=== PATIENT | female | born 1955 | race Caucasian/White ===

== ENCOUNTER 2024-08-22 05:58 | Day surgery (SDC) | payer MEDICARE, SELFPAY ==
[2024-08-08 13:33] VITALS: BMI 25.8
[2024-08-22] VITALS (25 sets, daily range): BP systolic 106–161; BP diastolic 47–92; PULSE 89–129; RESP 8–18; TEMP 36.1–37.6; O2SAT 91–104; BMI 25.8; BMI 27.3
--- NOTE | 2024-08-22 | DI.RAD.S_ITS ---
PROCEDURE: XR HIP W PEL IF DONE RT 2V INDICATIONS: ANTERIOR RIGHT HIP TECHNIQUE: 2 fluoroscopic spot images of the right hip acquired. COMPARISON: None. FINDINGS / IMPRESSION: Two fluoroscopic spot images from right total hip arthroplasty the procedures dictated under separate report. Fluoroscopic Dosimetry values are not delineated. Dictated by: Tera Hess M.D. on 08/25/2024 at 12:16 Approved by: Tera Hess M.D. on 08/25/2024 at 12:18
--- NOTE | 2024-08-22 06:00 | DI.RAD.S_ITS ---
PROCEDURE: XR HIP W PEL IF DONE RT 2V INDICATIONS: total right hip TECHNIQUE: AP pelvis and lateral view of the hip acquired. COMPARISON: [facility], [place], XR HIP W PEL IF DONE RT 2V, 08/22/2024, 9:33. FINDINGS: Bones: Patient is status post right hip arthroplasty, with hardware components in expected positions. The hip joint appears congruent. The visualized bony structures appear intact. Soft tissues: Overlying postoperative changes are noted. No suspicious soft tissue densities. IMPRESSION: Expected post-operative appearance of a hip arthroplasty. Dictated by: Ang Caballero M.D. on 08/22/2024 at 10:39 Approved by: Ang Caballero M.D. on 08/22/2024 at 10:39
[2024-08-22] MEDS: ACETAMINOPHEN 325 MG TABLET 975 MG PO ×2 (06:53→18:01)
[2024-08-22] MEDS: LACTATED RINGERS 1,000 ML 50 ML IV (06:58)
[2024-08-22] MEDS: CEFAZOLIN 2 GM/100 ML PREMIX 100 ML IV ×3 (07:58→23:35)
--- NOTE | 2024-08-22 08:27 | SUR.OPER ---
Supine on padded [place] table with bilateral legs secured in padded positioning boots and suspended in positioning spars, operative leg in traction per surgeon. Head on one pillow. Arm on non-operative side secured on padded armboard <90 degrees abduction. Arm on operative side padded and resting across chest then secured with tape over sheet. Padded perineal post in place per surgeon.
[2024-08-22] MEDS: ROPIVACAINE/EPI/CLONIDINE/KET 50 ML SYRINGE INJ (08:37)
[2024-08-22] MEDS: TRANEXAMIC ACID 1,000 MG VIAL 2000 MG INJ (08:38)
--- NOTE | 2024-08-22 09:51 | P.OP_ITS ---
Operative Date/Time/Diagnoses Date of procedure: 08/22/24 Pre-op diagnosis: Right hip osteoarthritis Post-op diagnosis: same Procedure & Clinicians Procedure: Right total hip arthroplasty Same procedure as scheduled: Yes Surgeon: Andi Mejia Managing Cognitive Engineer: David Tilley Anesthesia Type: General and Local Operative Notes Estimated Blood Loss (mL): 250 Procedure in detail: Right Uncemented Direct Anterior Depuy Total Hip Arthroplasty: Implants: * [place] Gription size 54 cup? * Actis femoral stem size 5 high offset? * 36 mm +1.5 ceramic femoral head? Procedure Summary: This 69-year-old female patient received 1 size up on the cup side and the templated implants on the femoral side. All tested parameters were appropriate during initial trialing so these implants were used for the definitive implants. During calcar planing while I was manipulating the thigh to gain access to the broach connector the pressure of the retractor on the greater trochanter caused it to essentially cave in. I had not performed a conjoined tendon release and the conjoined tendon remained intact in its entirety to the piece which had essentially collapsed due to the compression forces of the greater trochanter retractor. I did tie and Ethibond suture around the area in an attempt to hold the remaining soft tissue attachments. The entirety of the abductor musculature remained intact on the intact greater trochanter. It was quite difficult to visualize on fluoroscopy and may also be difficult to visualize on postoperative radiographs. I will not modify any of her postoperative protocol because of t his. Procedure in Detail: This patient was seen preoperatively and evaluated for hip pain which was refractory to numerous nonoperative treatment modalities. Their hip pain correlated with radiographic changes demonstrating significant degeneration in the hip joint. The risks and benefits of continued nonoperative management versus operative management were discussed at length and all of the patient?s questions were answered. Additional educational materials providing further details beyond our discussion in clinic were provided via a publicly available patient education video which included the incidence of medical complications associated with total hip arthroplasty, reasons for revision following total hip arthroplasty, and patient satisfaction rates following total hip arthroplasty. That video can be accessed at [email or web address] . With this understanding of the risks inherent to the procedure, the patient elected to move forward with operative management. Following preoperative optimization, the patient was scheduled for surgery. The patient was met in the preoperative holding area the day of the procedure and all questions were answered. The patient?s nares were swabbed with betadine in order to decolonize them from MRSA. Informed consent was signed and the right limb was marked with indelible ink.? The patient was brought back to the operating room where anesthesia was induced. The patient was transferred to the [place] table and all bony prominences were padded. The operative site was prepped and draped in the usual sterile fashion. Prior to incision, tranexamic acid and cefazolin were administered. Operative templating images were displayed demonstrating the anticipated implant sizes and correct operative extremity. A timeout procedure was performed verifying the patient?s identity, medical comorbidities, allergies, relevant medications, anesthesia type and the surgical plan. All present were in agreement. The assistance of a physician assistant front office manager was required for positioning, room setup, soft tissue retraction and wound closure. Without this assistance, the procedure would have been significantly more challenging and time consuming.?? A direct anterior approach to the hip was utilized. This was performed with a longitudinal incision through a Heuter interval. The incision was planned 2 cm distal and 2 cm lateral to the ASIS extending towards the lateral patella, in line with the muscle body of the TFL. Following incision, the subcutaneous tissue was dissected while taking care to avoid injury to the lateral femoral cutaneous nerve. The fascia overlying the TFL was identified by dissecting off the overlying fat and identifying perforating vessels to the TFL. The TFL fascia was incised and dissected away from the medial border of the TFL. A cobra retractor was placed over the superior femoral neck between the abductors and the hip capsule and used to reflect the TFL laterally. A Wells self-retainer was then placed in the distal aspect of the wound between the TFL and the rectus femoris. This was tensioned to open up the direct anterior interval and the lateral circumflex vessels were identified and coagulated using electrocautery. The floor of the TFL fascia was incised, exposing the pericapsular fat overlying the hip capsule. A second cobra retractor was placed on the inferior femoral neck. A double-bent soft tissue retractor was placed on the anterior wall of the acetabulum and used to tension the reflected head of rectus femoris, which was then released in order to limit soft tissue tension. A capsulotomy was made in the midline of the anterior hip capsule in line with the femoral neck ending at the vastus tubercle. The double-bent retractor was removed in order to limit the amount of time that a soft tissue retractor remained on the anterior wall and protect the femoral nerve. Tag stitches were placed in the superior and inferior leaflets of the hip capsule. An Ángel soft tissue retractor was introduced over the tag stitches and tensioned in the interval between the rectus femoris and t he TFL in order to retract and protect those muscles. The cobra retractors were replaced intracapsularly, with one over the superior neck in the pocket created by the base of the greater trochanter and the other on the femoral head. The capsulotomy was extended laterally to the base of the greater trochanter and medially to the lesser trochanter. This required externally rotating the hip. Once the lesser trochanter had been identified, a neck cut was planned according to measurements from preoperative templating. A ruler was cut at the length measured between the superior aspect of the lesser trochanter and the collar of the prosthesis. This line was extended towards the inferior aspect of the lateral cobra retractor to plan a cut which would leave minimal residual femoral neck laterally. The neck was cut at 60 degrees of external rotation along that line. A second cut was performed to remove a large napkin ring and facilitate head extraction. The napkin ring cut and femoral head were removed.?? A broad anterior wall retractor was placed between the labrum and the anterior capsule so that the anterior capsule would prevent capturing and pinching the femoral nerve anteriorly. An additional retractor was placed on the posterior wall. External rotation and traction were applied through the [place] table so that the cut surface of the femoral neck would not restrict access to the acetabulum. The labrum was excised sharply and the pulvinar was excised with electrocautery to limit bleeding from branches of the obturator artery. Acetabular reamers were selected based on preoperative templating and measurements of the excised femoral head. These were introduced into the acetabulum. Fluoroscopy was utilized to replicate a standing AP pelvis radiograph by centering over the pelvis, rotating until there was appropriate symmetry between the obturator foramen, and introducing caudal tilt to match the position of the pubic symphysis relative to the sacrococcygeal junction according to the patient?s anatomy. Fluoroscopy was utilized to ensure appropriate reaming depth. Once satisfied with the reaming depth corresponding to the preoperative template and the pinch fit between the columns, an appropriate sized acetabular cup was selected which would provide 1 mm of press-fit. This cup was introduced and manipulated until appropriate abduction and anteversion angles were obtained with careful attention to appropriate abduction and anteversion angles as evaluated by the position of the cup relative to the anterior and posterior jordan of the acetabulum and the AP fluoroscopy which recreated the patient?s standing radiograph. The cup was impacted into place. Peripheral osteophytes were removed. The acetabular liner was then placed with care to ensure locking of the locking mechanism.? Attention was then turned to the femur. All retractors were removed, traction was released, a retractor was placed in the interval between the hip capsule and the gluteus minimus, and the hip was externally rotated to 90 degrees. Traction was applied through the [place] table to tension the lateral capsule and this was released using electrocautery. Traction was released and a [place] hook was placed posteriorly around the proximal femur at the level of the vastus ridge. The table height was lowered in order to restrict the tension on the anterior structures during hip hyperextension to limit the risk of femoral nerve palsy. With traction off and the hip at 90 degrees of external rotation, the hip was hyperextended and adducted while manually elevating the femur away from the al tabulum with the [place] hook to ensure it would not be caught behind the greater trochanter. An asymmetric retractor was placed over the calcar and a broad double-pronged retractor was placed over the greater trochanter. The tag stitch capturing the lateral leaflet of the capsule was moved to the medial side, leaving the conjoined and piriformis tendons isolated in the face of the greater trochanter. The hip was externally rotated and elevated. A release of the conjoined tendon was not necessary in order to obtain adequate exposure for broaching. The canal was opened with an opening broach and a rasp was used to remove cancellous bone. A rongeur was used to remove the residual lateral bone at the base of the greater trochanter to avoid placing the stem in varus. The femur was then broached to the appropriate sized stem yielding good rotational fit and fill of the canal as well as appropriate version of the stem trial. Neck and head trials were placed, all retractors were removed and the hip was returned to neutral abduction and extension. I then reduced the hip. Initial trialing was performed with a size 5 broach, a high offset neck and a +1.5 head. I initially manually externally rotated the hip and found no instability. I then locked the hip in 45 degrees of external rotation and dropped it to the floor with traction off which demonstrated no instability. An AP pelvis fluoroscopic image matching the preoperative standing radiograph with both lesser trochanters visible and both hips in 40 degrees of external rotation demonstrated appropriate leg length and offset. AP and lateral hip fluoroscopic images were obtained to evaluate the broach size which demonstrated appropriate canal fill. The hip was dislocated and I returned to the broaching position. Based on my evaluation during initial trialing I planned to place these definitive implants. The definitive stem was placed and the trunnion was cleaned and dried. I placed a ceramic head onto the trunnion and impacted it into place on the [place] taper.?? All retractors were removed and the hip was reduced. A dilute mixture of betadine and peroxide was used to bathe the soft tissues during final fluoroscopic assessment. Appropriate component positioning was confirmed on an AP pelvis radiograph with the operative and nonoperative legs in 40 degrees of external rotation, evaluating leg length and offset. Appropriate stem fill was evaluated on AP and lateral hip radiographs. No fractures were identified on these radiographs. There was no hip instability with 140? of external rotation as well as a 45 degree drop test. The hip was copiously irrigated with pulse lavage. The capsule was closed with absorbable interrupted suture. The TFL fascia was closed with barbed suture while carefully protecting the lateral femoral cutaneous nerve from entrapment. A mixture of Ropivacaine, Epinephrine, Clonidine and Toradol was infiltrated throughout the soft tissues. The skin was closed with 2-0 and 3-0 sutures. S urgical glue was applied and a soft dressing was placed.??The sponge, instrument and needle counts were reported as being correct at the end of the case.??No obvious complications occurred. The patient was transferred from the [place] table back to a stretcher. The patient emerged from anesthesia without difficulty and was taken to the PACU in a stable condition.? Plan for aftercare: * Anterior hip precautions * Patient is a chronic opiate user and will receive her baseline opiates during this admission * Patient had help at home unfortunately her family member who is going to help her has had a series health issue of her own and will not be readily available so we will work with the patient on progressing her functional tolerance during this admission with anticipation of eventual discharge home and potentially keep her in the hospital for longer than typical * Weightbearing as tolerated * Aspirin 81 twice per day for DVT prophylaxis * Anticipate discharge home over the weekend * Change into normal clothes upon arrival on the hospital floor * Mobilize in the halls as much as is logistically possible. If physical therapy is unavailable for mobilization, then patient should mobilize with nursing staff * Multimodal pain regimen with no IV opioids ordered * Apply ice machine to operative hip. Ensure that sufficient ice is in the chamber for the pad to remain cold * Follow up at [facility] in 2 weeks * Detailed postoperative instructions available at [email or web address]
[2024-08-22] MEDS: HYDROMORPHONE 1 MG INJ IV ×2 (10:33→10:40)
[2024-08-22] MEDS: hydrOXYzine 50 MG/ML INJ 25 MG IM (10:57)
[2024-08-22] MEDS: OXYCODONE IR 5 MG TABLET 10 MG PO (10:58)
[2024-08-22] MEDS: fentaNYL 100 MCG/2 ML INJ IV ×2 (10:58→11:12)
[2024-08-22] MEDS: LACTATED RINGERS 1,000 ML 100 ML IV (12:30)
[2024-08-22] MEDS: OXYCODONE IR 10 MG TABLET 20 MG PO ×2 (13:36→17:12)
[2024-08-22] MEDS: LIOTHYRONINE 5 MCG TABLET 15 MCG PO ×2 (13:36→16:16)
--- NOTE | 2024-08-22 13:45 | PT.IIE ---
Current Diagnoses Unilateral primary osteoarthritis, right hip (08/22/24) Surgery Performed Operation Date: 08/22/24 07:45 Actual Procedures p Total Hip Arthroplasty/Anterior Approach(Right) - Andi Mejia MD Surgical History (Last Updated 08/08/24 @ 14:44 by Amparo Zuñiga, RN) Cataract extraction status History of cholecystectomy (2012) History of lateral meniscus repair of left knee History of tonsillectomy Medical History (Last Updated 08/08/24 @ 14:45 by Amparo Zuñiga, RN) Chronic back pain Double vision Foot fracture, right Hypothyroid Osteoarthritis Physical Therapy Inpatient Evaluation/Re-Eval M1 PT/OT-IP Prior Functional Status Start: 08/22/24 16:12 Freq: NEEDED Status: Active Protocol: Document 08/22/24 13:45 AB (Rec: 08/22/24 16:23 AB [id number]) Medical Review Prior Functional Status Medical History Reviewed Yes Communication able to make needs known Mobility and Gait pt stated taht she was independent with all mobilities and ambualtion without AD Activities of Daily Living and IADL's per OT note: Able to do ADL and IADL needs but had pain. Social History Household Members none Living Arrangements House Number of Floors (Floors) One Floor Number of Stairs To Enter/Railing? 2 steps with left rail to enter Home Environment Standard Height Toilet,Tub/ Shower Home Equipment Front Wheel Walker,Straight Cane,Raised Toilet Seat w/ Armrests,Shower Seat without Backrest,Hand Held Shower Additional Social History Comment pt stated that she has neighbors to assist her if needed but no one to stay and assist her M2 PT-IP Current Condition Start: 08/22/24 16:12 Freq: NEEDED Status: Active Protocol: Document 08/22/24 13:45 AB (Rec: 08/22/24 16:23 AB [id number]) Physical Therapy Current Condition Current Condition Evaluation Date 08/22/24 Treatment Diagnosis s/p R KEHINDE anterior; difficulty in walking Onset Date 08/22/24 M3 PT-IP Subjective Start: 08/22/24 16:12 Freq: NEEDED Status: Active Protocol: Document 08/22/24 13:45 AB (Rec: 08/22/24 16:23 AB [id number]) Subjective Physical Therapy Visit Type Type Initial Evaluation Visit Start Time 13:45 Visit Stop Time 14:20 Number of [employer]PERATIONS ENGINEER Visits 0 Physical Therapy Visit Comments Patient Comments agreeable to do PT Therapy Pain Assessment Pain When Pain Assessed At Rest Pain Present Pain Present Pain Reported Location right hip Intensity 8 Scale Used Numeric (0 - 10) Pain Behaviors Guarding Pain Management Techniques Distraction,Modification of Treatment,Re-positioning, Timing of Activity with Medications M4 PT-IP Mobility and Gait Start: 08/22/24 16:12 Freq: NEEDED Status: Active Protocol: Document 08/22/24 13:45 AB (Rec: 08/22/24 16:23 AB [id number]) PT-Bed Mobility Assessment Supine to Sit Supine to Sit Standby Assistance PT-Transfer Assessment Sit to and From Stand Sit to and from Stand Moderate Assistance,Maximum Assistance,1 Person Assistance ,Use of Upper Extremities Equipment Transfer Assistive Device Gait Belt,Front Wheeled Walker Orthotic/Prosthetic Devices or Brace: No Transfers Transfer Destination Chair Transfer Technique ambulated Transfer Ability Level of Assist Moderate Assistance,Maximum Assistance,1 Person Assistance ,Use of Upper Extremities Comments Mobility Comments pt supine in bed and slightly sleepy but agreed to do PT. obtained PLOF and home set up from pt. post-op folder provided and reviewed contents with pt. educated on R hip anterior precautions. BP in supine: 129/68. pt completed supine to sit SBA. able to sit on EOB SBA. no c/o dizziness /lightheadedness. BP checked: 139/73. pt completed sit to stand mod to max A and max cues and ambulated in room ~ 15 ft using FWW mod to max A and max cues. (+) L knee buckling during turning max A for steadiness and safety. pt wants to sit on the chair and ambulated to the chair. positioned pt on the chair. call light and table placed within reach. Left pt with OT. Gait Assessment Gait Gait Assistance Required: Moderate Assistance,Maximum Assistance Distance (Feet) 15 Able to Maintain Weight Bearing Status Yes During Gait Assistive Devices Assistive Device Gait Belt,Front Wheeled Walker Orthotic/Prosthetic Devices or Brace: No Gait Deviations General Gait Pattern Antalgic,Decreased Stride Length,Decreased Feet Clearance Factors Limiting Gait Function Factors Limiting Gait Function Decreased Activity Tolerance, Difficulty Following Directions,Limited Range of Motion,Pain,Poor Balance,Poor Safety Awareness PT-Balance Assessment Sitting Balance and Reactions Static Sitting Balance Ability Normal Dynamic Sitting Balance Ability Good Standing Balance and Reactions Static Standing Balance Ability Fair Dynamic Standing Balance Ability Poor Device Used FWW M5 PT-IP Objective Assessments Start: 08/22/24 16:12 Freq: NEEDED Status: Active Protocol: Document 08/22/24 13:45 AB (Rec: 08/22/24 16:23 AB [id number]) Orientation Orientation/Cognition Level of Alertness Alert Orientation Name,Place,Situation Language Function Ability No Deficits Noted Safety Awareness Decreased Safety Awareness Memory Description No Deficits Noted Comments slightly sleepy Gross Range of Motion Lower Extremity ROM Assessment Within Functional Limits Strength Lower Extremity Strength Assessment Right Impaired Hip 3+/5 Knee 3+/5 Coordination Assessment Gross Coordination Gross Coordination WNL Sensation Assessment Sensation Gross Sensation WNL Muscle Tone Muscle Tone WNL Yes M6 PT-IP Treatment Start: 08/22/24 16:12 Freq: NEEDED Status: Active Protocol: Document 08/22/24 13:45 AB (Rec: 08/22/24 16:23 AB [id number]) Physical Therapy Treatment Exercises Exercises Heel Slides Education Education Provided Precautions,Weight Bearing Status,Post-Op Packet,Safety M7 PT-IP Assessment and Plan Start: 08/22/24 16:12 Freq: NEEDED Status: Active Protocol: Document 08/22/24 13:45 AB (Rec: 08/22/24 16:23 AB [id number]) PT Summary Assessment and Plan Potential Rehabilitation Potential Fair Status of Condition at Evaluation Evolving Summary Impairments Pain,ROM,Strength,Balance, Coordination,Sensation,Tone, Cognition,Bed Mobility, Transfers,Gait,Activity Tolerance Assessment Summary pt is a 69 y/o F s/p R KEHINDE anterior approach POD 0. pt requiring mod to max A with transfers and ambulation using FWW and (+) knee buckling during ambulation requiring max A for recovery and steadiness. pt lives alone and will not have consistent assistance at home. d/c plan depending on progress but at this time will require SNF rehab. Goals Bed Mobility Goal Independent Transfer Goal Independent,Front Wheeled Walker Gait Goal Independent,Front Wheel Walker Gait Distance 150 Other Goals up/down 2 steps L rail ascending SBA Days to Meet Goals 5 Frequency of Treatment Frequency Of Treatment Twice a Day Treatment Plan Physical Therapy Treatment Plan Bed Mobility Training,Transfer Training,Gait Training, Therapeutic Exercise,Balance Retraining,Post Op Education, Discharge Planning,Hot or Cold Pack,Neuromuscular Re-ed, Coordination Retraining,Manual Therapy Precautions Anterior Hip Precautions No Hip Extension,No Hip External Rotation Weight Bearing Status Weight Bearing Status Weight Bear as Tolerated Allowed Weight Bearing Amount (enter % RLE WBAT or #) (%) Recommendations To Nursing Amount of Assist Needed 2 Person Assist Discharge Recommendations PT Discharge Recommendations Home with 21/05 Assist Available,Home Health,SNF Rehab,Home vs SNF Transportation Needs at Discharge Private Vehicle,Wheelchair/ Cabulance
--- NOTE | 2024-08-22 13:45 | OT.IP.EVAL ---
Current Diagnoses Unilateral primary osteoarthritis, right hip (08/22/24) Surgery Performed Operation Date: 08/22/24 07:45 Actual Procedures p Total Hip Arthroplasty/Anterior Approach(Right) - Andi Mejia MD Past Medical History (Last Updated 08/08/24 @ 14:45 by Amparo Zuñiga, RN) Chronic back pain Double vision Foot fracture, right Hypothyroid Osteoarthritis Surgical History (Last Updated 08/08/24 @ 14:44 by Amparo Zuñiga, RN) Cataract extraction status History of cholecystectomy (2012) History of lateral meniscus repair of left knee History of tonsillectomy Occupational Therapy Inpatient Evaluation/Re-Eval M1 PT/OT-IP Prior Functional Status Start: 08/22/24 14:21 Freq: NEEDED Status: Active Protocol: Document 08/22/24 14:22 [facility] (Rec: 08/22/24 14:37 [facility] [id number]) Medical Review Prior Functional Status Communication I Mobility and Gait I with no devices but had pain . Activities of Daily Living and IADL's Able to do ADL and IADL needs but had pain. Social History Household Members none Living Arrangements House Number of Floors (Floors) One Floor Number of Stairs To Enter/Railing? 2 steps with left rail. Home Environment Standard Height Toilet,Tub/ Shower Home Equipment Front Wheel Walker,Straight Cane,Raised Toilet Seat w/ Armrests,Hand Held Shower Additional Social History Comment Originally pt's sister to stay and assist but had medical sx and not able to come and assist pt anymore. M2 OT-IP Current Condition Start: 08/22/24 14:21 Freq: Status: Active Protocol: Document 08/22/24 14:22 [facility] (Rec: 08/22/24 14:37 [facility] [id number]) Occupational Therapy Current Condition Current Condition Evaluation Date 08/22/24 Treatment Diagnosis S/P R KEHINDE anterior approach Diagnosis Onset Date 08/22/24 Post Operative Precautions Anterior Hip Precautions No Hip Extension,No Hip External Rotation Weight Bearing Status Weight Bearing Status Weight Bear as Tolerated M3 OT- IP Subjective and Pain Start: 08/22/24 14:21 Freq: Status: Active Protocol: Document 08/22/24 14:22 [facility] (Rec: 08/22/24 14:37 [facility] [id number]) OT- Subjective Occupational Therapy Visit Type Type Initial Evaluation Visit Start Time 13:45 Visit Stop Time 14:23 Occupational Therapy Visit Comments Patient Comments Pt agreed to get up. Patient/Caregiver Goals Pt wanting to go to skilled rehab. OT Pain Assessment Pain When Pain Assessed During Mobility Pain Present Pain Present Pain Reported Location right hip Intensity 8 Scale Used Numeric (0 - 10) M4 OT- IP ADL's Start: 08/22/24 14:21 Freq: Status: Active Protocol: Document 08/22/24 14:22 [facility] (Rec: 08/22/24 14:37 [facility] [id number]) OT [id number] General Evaluation Self-Feeding Ability Independent OT ADL-Grooming Comments OT Grooming Comments Not performed. OT ADL-Oral Care Comments Oral Care Comments NOt performed. OT ADL-Dressing General Eval Lower Body Dressing Ability Maximum Assistance Areas Needing Assistance Socks Comments OT Dressing Comments Educated not to cross her RLE over for LB dressing needs and would benefit from LB dressing equipment. OT ADL-Toileting Comments OT Toileting Comments Use of BSC for safety at this time and pt unsteady and buckling at times. Educated pt to be mindful of her RLE positioning during ADL needs and to be sure not to externally rotate her leg out. OT ADL-Bathing Comments OT Bathing Comments Not performed. M5 OT- IP IADL's Start: 08/22/24 14:21 Freq: Status: Active Protocol: Document 08/22/24 14:22 [facility] (Rec: 08/22/24 14:37 [facility] [id number]) OT-Instrumental Activities of Daily Living Home Safety Awareness Awareness of Need for Assistance at Home Good Awareness Home Safety Comments Pt very groggy and having difficulty to stay awake at this time. Medication Management Medication Management Comments Prior pt was independent. Money Management Money Management Comments Prior pt was independent. Meal Preparation Meal Preparation Comments Prior pt was independent. Business Excellence Leader Business Excellence Leader Comments Prior pt was independent. M6 OT- IP Functional Cognition Start: 08/22/24 14:21 Freq: Status: Active Protocol: Document 08/22/24 14:22 [facility] (Rec: 08/22/24 14:37 [facility] [id number]) Cognitive Factors Limiting Selfcare Function Cognitive Ability Level of Alertness Drowsy Patient Orientation Name,Place,Situation Attention Span Ability Capable of Focused Attention, Unable to Focus,Unable to Sustain Attention Ability to Follow Commands Able to Follow One Step Commands with Increased Time, Able to Follow One Step Commands with Repetition Cognitive Comments Cognitive Assessment Comments Pt very groggy and drowsy and having difficulty to stay awake at this time. Pt needing step by step cues to follow, MAX vc for safety . OT- Vision and Hearing OT- Hearing Assessment OT- Hearing Assessment WFL OT- Vision Assessment Visual Acuity Glasses All The Time Visual Attentiveness WFL Occular Pursuits WFL M7 OT- IP Mobility and Balance Start: 08/22/24 14:21 Freq: Status: Active Protocol: Document 08/22/24 14:22 [facility] (Rec: 08/22/24 14:37 [facility] [id number]) OT- Bed Mobility Assessment Supine to Sit Supine to Sit Assist Standby Assistance OT-Transfer Assessment Sit to and From Stand Sit to and from Stand Moderate Assistance,Maximum Assistance,1 Person Assistance Transfers Transfer Ability Moderate Assistance,Maximum Assistance,1 Person Assistance Technique Transfer Destination Bed,Chair Transfer Technique Stand Step Pivot Devices Transfer Assistive Devices Gait Belt,Front Wheeled Walker Comments Mobility Comments Increased time and assist with her hands to help move her RLE. MOD/MAXA to stand and to assist with FWW. At this time best to have 2 person assist for transfers only as pt right leg rishi at times. BP supine 129/68, sitting 139/73 and after getting to the recliner after taking a few steps dropped to 90/40 sitting in the recliner. BP with legs up 116/57- nursing notified and O2 replaced back on the pt. OT- Balance Assessment Sitting Balance and Reactions Static Sitting Balance Ability Fair Dynamic Sitting Balance Ability Fair Standing Balance and Reactions Static Standing Balance Ability Poor Dynamic Standing Balance Ability Poor M8 OT- IP Objective Assessments Start: 08/22/24 14:21 Freq: Status: Active Protocol: Document 08/22/24 14:22 [facility] (Rec: 08/22/24 14:37 [facility] [id number]) OT Gross Range of Motion Upper Extremity Range of Motion Assessment Within Functional Limits OT Strength Upper Extremity Strength Assessment Within Functional Limits Comments Strength Comments right 3rd digit trigger finger M9 OT- IP Assessment and Plan Start: 08/22/24 14:21 Freq: Status: Active Protocol: Document 08/22/24 14:22 [facility] (Rec: 08/22/24 14:37 [facility] [id number]) OT Summary Assessment and Plan Potential Rehabilitation Potential Excellent Analytic Complexity at Evaluation Low Summary OT Impairments Pain,Strength,Balance, Functional Mobility,Grooming, Dressing,Toileting,Bathing, Toilet Transfers,Shower Transfers,Activity Tolerance Progress Towards Goals Slow Progress due to Pain,Slow Progress due to Medical Issues,Slow Progress due to Activity Tolerance Assessment Summary Pt low complexity main barriers are steps, groggy, unsteady on her feet as her RLE rishi, and will benefit from skilled rehab prior to going home. Pt evaled today and BP dropped after getting up. Pt needing MOD/MAXA x1 for transfers and suggested two person assist for nursing staff as her LLE rishi at times. Pt is motivated to get better. Goals Self-Feeding Goal Independent Grooming Goal Independent Dressing Goal Independent Toileting Goal Independent Bathing Goal Independent Toilet Transfer Goal Independent Shower Transfer Goal Independent Days to Meet Goals 20 Frequency of Treatment Other frequency 5x/week Treatment Plan OT Treatment Plan ADL Training,Functional Mobility,Patient/Family Education,Discharge Planning Discharge Recommendations OT Discharge Recommendations SNF Rehab Transportation Needs at Discharge Private Vehicle,Wheelchair/ Cabulance
[2024-08-22] MEDS: KETOROLAC 30 MG/ML VIAL 15 MG IV ×2 (15:51→21:40)
--- NOTE | 2024-08-22 19:03 | PC.NURSE ---
Ortho: Working with PT and has been getting up with staff. Rt leg tends to buckle. saw her after surgery, he told pt this is expected because he filled the muscles with lidocaine per pt. She is concerned about going home between the pain and the weakness to the rt leg. Care management sent a referral. Pt has been using her ice machine. Has recieved Oxy 20mg for pain, she has been offered the dilaudid several times because her pain stays at an 8/10 any time she moves. She doesn't want to change to dilaudid though. She is concerned to use it since she has trouble taking many medications. She knows it is available if she want to use.
[2024-08-22] MEDS: DOCUSATE 100 MG CAPSULE PO (21:26)
[2024-08-22] MEDS: LIOTHYRONINE 5 MCG TABLET PO (21:26)
[2024-08-22] MEDS: ASPIRIN EC 81 MG TABLET PO (21:26)
[2024-08-23 00:28] VITALS: BP 119/58; PULSE 97; RESP 18; TEMP 36.5; O2SAT 98
[2024-08-23 01:21] VITALS: O2SAT 98
[2024-08-23] MEDS: OXYCODONE IR 10 MG TABLET 20 MG PO ×6 (01:37→22:31)
[2024-08-23] MEDS: ACETAMINOPHEN 325 MG TABLET 975 MG PO ×3 (01:45→16:37)
[2024-08-23] MEDS: KETOROLAC 30 MG/ML VIAL 15 MG IV ×4 (04:16→22:01)
[2024-08-23 04:26] VITALS: BP 117/46; PULSE 93; RESP 16; TEMP 36.4; O2SAT 97
[2024-08-23 04:31] LABS: Hematocrit 31.8 % (36-46)
[2024-08-23] MEDS: LIOTHYRONINE 5 MCG TABLET 35 MCG PO (05:03)
[2024-08-23 08:42] VITALS: BP 121/54; PULSE 96; RESP 17; TEMP 36.6; O2SAT 97
--- NOTE | 2024-08-23 08:48 | PM.PNPO.1 ---
Subjective Subjective Date Patient Seen: 08/23/24 Time Patient Seen: 08:48 Interval history: Patient states that she has new pain primarily at the incision site. She has general pain throughout her body due to pre-existing arthritis. No new numbness or tingling down the lower extremities. Does have some weakness in the right leg. No nausea vomiting fever or chills. Exam Vital Signs (past 8 hours): - 08/23/24 01:21 08/23/24 04:26 08/23/24 08:42 Temperature 97.5 F L 97.9 F Pulse Rate 93 H 96 H Respiratory Rate 16 17 Blood Pressure 117/46 L 121/54 L Pulse Oximetry 98 97 97 Oxygen Delivery Method Nasal Cannula Oxygen Flow Rate 2 2 Fraction of Inspired Oxygen 28 Fraction of Inspired Oxygen 28 SaO2/FiO2 Ratio 350 Oxygen Delivery Method Nasal Cannula Oxygen Flow Rate 2 Narrative Exam Narrative: Patient found sitting comfortably in bed. Aquacel dressing is clean dry and intact. SCDs are not on. 5/5 strength in hip flexors, quadriceps, hamstrings, DF, PF, EHL left. 5/5 strength in DF, PF, EHL right. 3/5 hip flexors, quadriceps, hamstrings, right. Sensation to light touch intact throughout BLE. Calves soft, compressible, nontender. ?Dressing placed intraoperatively CDI. Const General: cooperative and healthy appearing Resp Effort & Inspection: normal respiratory effort and able to speak in complete sentences Objective Labs 08/23/24 04:15 Labs: Laboratory Results - last 24 hr 08/23/24 04:15 Hgb 11.0 L Hct 31.8 L PFSH Medical History (Updated 08/08/24 @ 14:45 by Amparo Zuñiga RN) Chronic back pain Foot fracture, right Double vision Hypothyroid Osteoarthritis Surgical History (Updated 08/08/24 @ 14:44 by Amparo Zuñiga RN) History of lateral meniscus repair of left knee History of cholecystectomy (2012) Cataract extraction status History of tonsillectomy Social History household members: none Smoking Status: Former smoker alcohol intake: current Assessment & Plan Post-op Postoperative Procedures: Procedures Operation Date: 08/22/24 07:45 Actual Procedure Side Surgeon p Total Hip Arthroplasty/Anterior Approach Right Andi Mejia MD Postoperative day: 1 Postoperative status: doing well Postoperative plan narrative: - Anterior hip precautions - Patient is a chronic opiate user and will receive her baseline opiates during this admission - Weightbearing as tolerated with assistive devices - Aspirin 81 twice per day for DVT prophylaxis - SCDs applied and turned on. They should be on bilateral lower extremity when patient is resting in bed for DVT prevention. - Mobilize in the halls as much as is logistically possible. If physical therapy is unavailable for mobilization, then patient should mobilize with nursing staff - Apply ice machine to operative hip. Ensure that sufficient ice is in the chamber for the pad to remain cold - Discussed with the patient of discharging to home versus SNF. She has not feel stable enough to do it discharge home today. She is also concerned that she has no assistance at home. She will discuss with cm if SNF is an option for her. Gave encouraged him that she work with physical therapy so that she will become more ambulatory in hopes of discharging to home in the next 1-2 days. Time Spent With Patient Time with patient: 15-24 minutes Quality VTE Deep Vein Thrombosis/Pulmonary Embolism Present on Admission: No
[2024-08-23] MEDS: DOCUSATE 100 MG CAPSULE PO ×2 (09:19→21:25)
[2024-08-23] MEDS: ASPIRIN EC 81 MG TABLET PO ×2 (09:20→21:25)
--- NOTE | 2024-08-23 09:35 | PT.IPTN ---
Current Diagnoses Unilateral primary osteoarthritis, right hip (08/22/24) Surgery Performed Operation Date: 08/22/24 07:45 Actual Procedures p Total Hip Arthroplasty/Anterior Approach(Right) - Andi Mejia MD Physical Therapy Treatment Note M2 PT-IP Current Condition Start: 08/22/24 16:12 Freq: NEEDED Status: Active Protocol: Document 08/22/24 13:45 [facility] (Rec: 08/22/24 16:23 [facility] [id number]) Physical Therapy Current Condition Current Condition Evaluation Date 08/22/24 Treatment Diagnosis s/p R KEHINDE anterior; difficulty in walking Onset Date 08/22/24 M3 PT-IP Subjective Start: 08/22/24 16:12 Freq: NEEDED Status: Active Protocol: Document 08/23/24 09:35 [facility] (Rec: 08/23/24 12:27 [facility] [id number]) Subjective Physical Therapy Visit Type Type Treatment Note Visit Start Time 09:35 Visit Stop Time 10:15 Number of QUAIL FARMER Visits 0 Physical Therapy Visit Comments Patient Comments agreeable to do PT Therapy Pain Assessment Pain When Pain Assessed At Rest Pain Present Pain Present Pain Reported Location right hip Intensity 8 Scale Used Numeric (0 - 10) Pain Behaviors Guarding Pain Management Techniques Apply Cold,Distraction, Modification of Treatment,Re- positioning,Timing of Activity with Medications M4 PT-IP Mobility and Gait Start: 08/22/24 16:12 Freq: NEEDED Status: Active Protocol: Document 08/23/24 09:35 [facility] (Rec: 08/23/24 12:27 [facility] [id number]) PT-Bed Mobility Assessment Supine to Sit Supine to Sit Maximum Assistance PT-Transfer Assessment Sit to and From Stand Sit to and from Stand Moderate Assistance,Maximum Assistance,1 Person Assistance ,Use of Upper Extremities Equipment Transfer Assistive Device Gait Belt,Front Wheeled Walker Orthotic/Prosthetic Devices or Brace: No Transfers Transfer Destination Chair Transfer Technique ambulated Transfer Ability Level of Assist Moderate Assistance,Maximum Assistance,1 Person Assistance ,Use of Upper Extremities Gait Assessment Gait Gait Assistance Required: Moderate Assistance,Maximum Assistance Distance (Feet) 25 Able to Maintain Weight Bearing Status Yes During Gait Assistive Devices Assistive Device Gait Belt,Front Wheeled Walker Orthotic/Prosthetic Devices or Brace: No Gait Deviations General Gait Pattern Antalgic,Decreased Feet Clearance Factors Limiting Gait Function Factors Limiting Gait Function Decreased Activity Tolerance, Decreased Strength,Difficulty Following Directions,Limited Range of Motion,Pain,Poor Balance,Poor Safety Awareness Comments Gait Comments pt supine in bed and agreeable to do PT. completed heel slides in bed. pt completed supine to sit max A and max cues. sit to stand from the EOB mod to max A and max cues. pt ambulated in room using FWW mod to max A ~ 25 ft and cues. pt presents with slow paced gait and decrease RLE elevation with stepping. positioned pt on the chair. call light and table placed within reach. M5 PT-IP Objective Assessments Start: 08/22/24 16:12 Freq: NEEDED Status: Active Protocol: Document 08/22/24 13:45 [facility] (Rec: 08/22/24 16:23 [facility] [id number]) Orientation Orientation/Cognition Level of Alertness Alert Orientation Name,Place,Situation Language Function Ability No Deficits Noted Safety Awareness Decreased Safety Awareness Memory Description No Deficits Noted Comments slightly sleepy Gross Range of Motion Lower Extremity ROM Assessment Within Functional Limits Strength Lower Extremity Strength Assessment Right Impaired Hip 3+/5 Knee 3+/5 Coordination Assessment Gross Coordination Gross Coordination WNL Sensation Assessment Sensation Gross Sensation WNL Muscle Tone Muscle Tone WNL Yes M6 PT-IP Treatment Start: 08/22/24 16:12 Freq: NEEDED Status: Active Protocol: Document 08/23/24 09:35 [facility] (Rec: 08/23/24 12:27 [facility] [id number]) Physical Therapy Treatment Exercises Exercises Heel Slides Education Education Provided Precautions,Weight Bearing Status,Safety M7 PT-IP Assessment and Plan Start: 08/22/24 16:12 Freq: NEEDED Status: Active Protocol: Document 08/23/24 09:35 [facility] (Rec: 08/23/24 12:27 [facility] [id number]) PT Summary Assessment and Plan Potential Rehabilitation Potential Fair Summary Impairments Pain,ROM,Strength,Balance, Coordination,Sensation,Tone, Cognition,Bed Mobility, Transfers,Gait,Activity Tolerance Progress Towards Goals Slow Progress due to Pain,Slow Progress due to Activity Tolerance Assessment Summary pt requiring mod to max A with transfers and ambulation using FWW and was able to ambulate 25 ft today. continues to have decrease activity tolerance and c/o increase hip pain affecting mobility. pt will need SNF rehab to improve overall strenght and function. Goals Bed Mobility Goal Independent Transfer Goal Independent,Front Wheeled Walker Gait Goal Independent,Front Wheel Walker Gait Distance 150 Other Goals up/down 2 steps L rail ascending SBA Days to Meet Goals 5 Frequency of Treatment Frequency Of Treatment Twice a Day Treatment Plan Physical Therapy Treatment Plan Bed Mobility Training,Transfer Training,Gait Training, Therapeutic Exercise,Balance Retraining,Post Op Education, Discharge Planning,Hot or Cold Pack,Neuromuscular Re-ed, Coordination Retraining,Manual Therapy Precautions Anterior Hip Precautions No Hip Extension,No Hip External Rotation Weight Bearing Status Weight Bearing Status Weight Bear as Tolerated Allowed Weight Bearing Amount (enter % RLE WBAT or #) (%) Recommendations To Nursing Amount of Assist Needed 1 Person Assist Discharge Recommendations PT Discharge Recommendations SNF Rehab Transportation Needs at Discharge Wheelchair/Cabulance
[2024-08-23] MEDS: LIOTHYRONINE 5 MCG TABLET 15 MCG PO ×2 (09:58→14:24)
--- NOTE | 2024-08-23 12:13 | P.PN_ITS ---
Subjective Subjective Interval history: PATIENT SUMMARY: The patient presented with post-operative management and concerns related to chronic opioid use and bone integrity following surgery. SUBJECTIVE: The patient reported experiencing grogginess and difficulties staying awake during conversations. The patient had a goal to transition from oxycodone back to tramadol for managing arthritis-related pain. The patient received oxycodone every four to five hours, which helped with sleep but led to awakening once the effects wore off. The patient also inquired about the use of Toradol, Celebrex, and meloxicam, reporting adverse reactions such as nausea with Celebrex and meloxicam. The patient planned to use ibuprofen less than twice a week and ice the affected area frequently. The patient discussed the desire to spend 7 to 10 days in a care facility for rehabilitation, as insurance covers up to 20 days. The patient mentioned feeling better when moving around compared to the previous day and expressed a positive outlook on recovery. The patient had a history of arthritis since age 32 and questioned whether this contributed to bone issues observed during surgery. The patient had a family history of osteoporosis, potentially related to the mother's condition. The patient previously received steroid injections into the back. OBJECTIVE: Not available. ASSESSMENT: 1. Post-operative pain management: The patient was on oxycodone for post- surgical pain and was planning to transition back to tramadol for arthritis. The patient experienced grogginess, which may be related to opioid use. The tapering plan would need to be gradual to avoid withdrawal symptoms. 2. Bone integrity concern: During surgery, a part of the patient's bone, the greater trochanter, collapsed slightly, indicating possible osteopenia or osteoporosis. A DEXA scan was considered to evaluate bone density further, given the family history of osteoporosis and surgical findings. PLAN: Treatment: - Continued oxycodone for pain relief with a plan to transition to tramadol eventually. - Ice therapy as needed for pain relief. - NSAIDs like ibuprofen advised for use less than twice a week as this is what she states she is able to take. Tests: - Plan to order a DEXA scan to assess bone density in the outpatient setting. Patient Education: - Discussed the importance of a gradual reduction in opioid use. - Advised on the benefits of ice therapy for pain management. Follow-Up: - Scheduled follow-up appointments to monitor recovery and review DEXA scan results. Disposition: - Planned for short-term rehabilitation in a care facility for 7 to 10 days. Exam Vital Signs (past 8 hours): - 08/23/24 04:26 08/23/24 08:42 Temperature 97.5 F L 97.9 F Pulse Rate 93 H 96 H Respiratory Rate 16 17 Blood Pressure 117/46 L 121/54 L Pulse Oximetry 97 97 Oxygen Flow Rate 2 Fraction of Inspired Oxygen 28 SaO2/FiO2 Ratio 350 Oxygen Delivery Method Nasal Cannula Oxygen Flow Rate 2 Objective Labs 08/23/24 04:15 Labs: Laboratory Results - last 24 hr 08/23/24 04:15 Hgb 11.0 L Hct 31.8 L [facility] Medical History (Updated 08/08/24 @ 14:45 by Amparo Zuñiga RN) Chronic back pain Foot fracture, right Double vision Hypothyroid Osteoarthritis Surgical History (Updated 08/08/24 @ 14:44 by Amparo Zuñiga, RN) History of lateral meniscus repair of left knee History of cholecystectomy (2012) Cataract extraction status History of tonsillectomy Social History household members: none Smoking Status: Former smoker alcohol intake: current Assessment & Plan Time-Based Coding :: [TOTAL MINUTES] spent with patient and on the chart (including review of chart, obtaining history, exam, reviewing outside data, placing orders, documenting exam and treatment plan, and counseling patient) on [DATE]. Quality VTE Deep Vein Thrombosis/Pulmonary Embolism Present on Admission: No
--- NOTE | 2024-08-23 12:43 | CM.DANOTE ---
Patient is a 69 yo female who was admitted on 08/22/24 for RTHA. Pt has [facility] MCR for insurance and her PCP is Gaviota Lyons. EMR was reviewed. Per Ortho, pt with hx of right hip arthritis and tolerated RTHA well and to work with PT/OT to determine home vs SNF. Per PT, pt currently mod to max assist for transfers and ambulation and recommending SNF at this time. SW met bedside with pt and explained role and she confirms that she lives in [facility] in a mobile home alone but has very supportive neighbors. Pt is independent with ADLs at baseline and drives and does have a cane and walker if needed but typically ambulates independently. Pt states she had a home plan of her sister coming to stay but now her sister is receiving chemotherapy herself and cannot assist. Pt has 2 other sisters who are not able or comfortable with providing assist at d/c. Pt denies any hx of SNF but confirms she feels SNF needed prior to safe d/c home and SW provided SNF Choice list with highlighted [facility] contracted facilities. Pt states her preference is 1) [facility] or [facility] 2) [facility] or [facility]. SW confirmed that pt does not have financial means to pay privately for in-home CGs or SNF as she states she is in significant debt due to detention care of her spouse who was terminally ill and has since and pt states I'm going to have to work all the way until I'm . Pt also confirms that her neighbors can assist but not stay with her. SW made SNF referrals to: [facility]- could likely accept but unsure if female bed available until Mon PM or Tu AM. [facility]- received vm about referral but cannot access referral from home as computer not working and will try to review today if possible. [facility]- faxed and emailed referral and left msg [facility]- can accept and willing to initiate auth. PASRR completed and signed for exempted hospital discharge due to depression medication on H&P home med list. Plan: SW to follow for [facility] submission for AAR auth and to follow closely for further PT tomorrow to determine if she made progress for d/c to home Sunday vs SNF under her insurance auth. MARISELA Dunn Discharge Planning/Care Management CM Discharge Assessment Start: 08/23/24 12:41 Freq: Status: Active Protocol: Document 08/23/24 12:41 BF (Rec: 08/23/24 12:43 BF [id number]) Discharge Planning Assessment Assigned [employer] MARISELA Samuel DPOA/Assigned Designee Name sister Lesly Contact Information [phone] Advance Directives? Yes Advance Directives on File No History Provided By Patient,Medical Record Has Patient been admitted in last 30 No days? Prior Living Arrangements House Household Members none Type of transporation used prior to Drives own vehicle admit Independent with ADL's Yes Is patient alert and oriented? Yes Caregiver for Another No: spouse now Community Services used prior to Physical Therapy admission: DME Already Rented / Owned FWW / Walker,Cane Patient/Family Preference Halfway Facility,Home with Home Health Comment SNF vs home with HH pending progress Barriers to Discharge No Comment If SNF, need AARP auth Discharge Plan Halfway Facility Transportation Arrangement If SNF, facility van if home then friend can transport Referrals Initiated Halfway If patient plan is SNF: Has PASSR been Yes completed? Medicare Choice List Provided Yes Medicare choice list reviewed on patient electronic tablet with SNF/HH Preference 1) [facility] or [facility] 2) [facility] or [facility] Has Agency SNF been contacted Yes Whiteboard Updated in Patient Room with Yes name and ext. # of [employer] Review Status In Process Please Provide Date Initial DC 08/23/24 Assessment Was Performed Next Review Type Continued Stay Review Pre-Anesthesia Assessment Start: 08/08/24 13:33 Freq: Status: Complete Protocol: Document 08/08/24 13:33 LB (Rec: 08/08/24 14:58 LB [id number]) Pre-Anesthesia Assessment PAC Comment 08/08/24 Phone assessment. Patient Information Reviewed Via Phone Assessment Assessment Completed With Patient Diagnostic Results BMP/CMP,CBC,EKG Comment 06/18/24 outside labs/EKG. Primary Care Provider G[facility]iota Lyons Seen Specialist in Last 12 Months Yes Specialist Seen Orthopedist,Other Primary Language Latvian Preferred Language Latvian Geomorphology Teacher Required No Height 167.64 cm Weight 72.575 kg Body Mass Index (BMI) 25.8 Hearing Ability Normal Visual Assist Glasses Dentition Type Teeth, Natural Present Barriers to Learning None Hx Anesthesia Reactions No Hx Family Anesthesia Reaction No Hx Malignant Hyperthermia No Hx Blood Transfusions No Anesthesia Review Requested Yes Color Television Console Monitor Yes: left VM with with discharge planning. alcohol intake current alcohol intake frequency a few times a week Smoking Status Former smoker how long ago did patient quit smoking Quit 2006 Substance Use Type opiates Comment CBD oil Pain Present Pain Reported Comment Bilat hips, back. Musculoskeletal Symptoms Back Pain,Joint Pain,Muscle Cramps,Muscle Spasms,Numbness, Tingling History of Falling (Recent or History of No ) Patient is completely paralyzed or No completely immobile Comment Walking sticks. Is patient on oxygen? No Does patient have KIM/SOB Yes: only when thyroid levels are not in range. Hx Sleep Apnea No CPAP/BIPAP use not prescribed Currently Taking a Beta Angelica No Can You Climb a Flight of Stairs Without Yes SOB Hx Chest Pain No Hx SOB No Hx Syncope or Dizziness No Anti-Coagulant Therapy No Has a Sales Trainer No Cardiac Testing No Hx Pacemaker/ICD No Cardiac Clearance Received Not Applicable Dysphagia No Comment Rare constipation. Bladder Pattern Nocturia,Urgency Diabetes No HgbA1C 5.2 Date 06/18/24 Patient No Lactating No Hx Drug Resistant Organism Yes: C-diff 5 years ago. Presence of External or Internal Medical Yes: bilat IOL. Devices Have you had any close contact with No someone diagnosed with COVID-19? Are you experiencing any of these No symptoms symptoms? Marital Status / Lives With none Current Living Arrangements House Number of Floors (Floors) One Floor Number of Stairs To Enter/Railing? 2 stairs to enter with railing . Support System None Does the Patient Have Assistance After No Surgery Comment Pt would like to go to rehab - message left for discharge planning. Additional comment Overnight LOS advised by surgeon. Emergency Contact Name Lesly Castro - sister Mikaela Bernard - friend Emergency Contact [phone] Advance Directives? No PAC Instructions Assistance for 24 hours post- op,Durable medical equipment, Medications to take/avoid, Nasal antibiotic,No ETOH/ petroleum product on skin DOS, NPO,Post-op transportation,Pre -surgical wash,Sensory aids, Sturdy shoes/comfortable clothes,Do not bring valuables and remove jewelry
[2024-08-23 13:35] LABS: Estimated Glomerular Filt Rate > 60 mL/min (>60)
--- NOTE | 2024-08-23 14:31 | PT.IPTN ---
Current Diagnoses Unilateral primary osteoarthritis, right hip (08/22/24) Surgery Performed Operation Date: 08/22/24 07:45 Actual Procedures p Total Hip Arthroplasty/Anterior Approach(Right) - Andi Mejia MD Physical Therapy Treatment Note M2 PT-IP Current Condition Start: 08/22/24 16:12 Freq: NEEDED Status: Active Protocol: Document 08/22/24 13:45 AB (Rec: 08/22/24 16:23 AB [id number]) Physical Therapy Current Condition Current Condition Evaluation Date 08/22/24 Treatment Diagnosis s/p R KEHINDE anterior; difficulty in walking Onset Date 08/22/24 M3 PT-IP Subjective Start: 08/22/24 16:12 Freq: NEEDED Status: Active Protocol: Document 08/23/24 14:31 AB (Rec: 08/23/24 18:11 AB [id number]) Subjective Physical Therapy Visit Type Type Treatment Note Visit Start Time 14:31 Visit Stop Time 14:47 Number of GAMER Visits 0 Physical Therapy Visit Comments Patient Comments agreeable to do PT and wants to go back to bed Therapy Pain Assessment Pain When Pain Assessed At Rest Pain Present Pain Present Pain Reported Location right hip Intensity 7 Scale Used Numeric (0 - 10) Pain Management Techniques Apply Cold,Distraction, Modification of Treatment,Re- positioning,Timing of Activity with Medications M4 PT-IP Mobility and Gait Start: 08/22/24 16:12 Freq: NEEDED Status: Active Protocol: Document 08/23/24 14:31 AB (Rec: 08/23/24 18:11 AB [id number]) PT-Bed Mobility Assessment Sit to Supine Sit to Supine Maximum Assistance,1 Person Assistance PT-Transfer Assessment Sit to and From Stand Sit to and from Stand Moderate Assistance,1 Person Assistance,Use of Upper Extremities Equipment Transfer Assistive Device Gait Belt,Front Wheeled Walker Orthotic/Prosthetic Devices or Brace: No Transfers Transfer Destination Bed Transfer Technique ambulated Transfer Ability Level of Assist Moderate Assistance,1 Person Assistance,Use of Upper Extremities Comments Mobility Comments pt sitting on the chair and agreeable to do PT. pt wants to go back to bed afterwards. completed sit to stand from chair mod A and cues. ambulated in room ~ 50 ft using fWW mod A and cues. presents with slow paced gait and decrease RLE elevation . pt sat on EOB. completed sit to supine max A for LE elevation to bed. positioned pt on the bed. call light and table placed within reach. Gait Assessment Gait Gait Assistance Required: Moderate Assistance Distance (Feet) 50 Able to Maintain Weight Bearing Status Yes During Gait Assistive Devices Assistive Device Gait Belt,Front Wheeled Walker Orthotic/Prosthetic Devices or Brace: No Gait Deviations General Gait Pattern Decreased Stride Length, Decreased Feet Clearance,Step- to Gait Factors Limiting Gait Function Factors Limiting Gait Function Decreased Activity Tolerance, Decreased Strength,Difficulty Following Directions,Limited Range of Motion,Pain,Poor Balance,Poor Safety Awareness M5 PT-IP Objective Assessments Start: 08/22/24 16:12 Freq: NEEDED Status: Active Protocol: Document 08/22/24 13:45 AB (Rec: 08/22/24 16:23 AB [id number]) Orientation Orientation/Cognition Level of Alertness Alert Orientation Name,Place,Situation Language Function Ability No Deficits Noted Safety Awareness Decreased Safety Awareness Memory Description No Deficits Noted Comments slightly sleepy Gross Range of Motion Lower Extremity ROM Assessment Within Functional Limits Strength Lower Extremity Strength Assessment Right Impaired Hip 3+/5 Knee 3+/5 Coordination Assessment Gross Coordination Gross Coordination WNL Sensation Assessment Sensation Gross Sensation WNL Muscle Tone Muscle Tone WNL Yes M6 PT-IP Treatment Start: 08/22/24 16:12 Freq: NEEDED Status: Active Protocol: Document 08/23/24 14:31 AB (Rec: 08/23/24 18:11 AB [id number]) Physical Therapy Treatment Education Education Provided Precautions,Weight Bearing Status,Safety M7 PT-IP Assessment and Plan Start: 08/22/24 16:12 Freq: NEEDED Status: Active Protocol: Document 08/23/24 14:31 AB (Rec: 08/23/24 18:11 AB [id number]) PT Summary Assessment and Plan Potential Rehabilitation Potential Good Summary Impairments Pain,ROM,Strength,Balance, Coordination,Sensation,Tone, Cognition,Bed Mobility, Transfers,Gait,Activity Tolerance Progress Towards Goals Slow Progress due to Pain,Slow Progress due to Medical Issues,Slow Progress due to Activity Tolerance Assessment Summary pt progressing slowly with mobility but continues to require mod to max A. pt also has decrease activity tolerance and c/o increase pain affecting progress. pt will benefit from SNF rehab to improve overall mobility and strength. Goals Bed Mobility Goal Independent Transfer Goal Independent,Front Wheeled Walker Gait Goal Independent,Front Wheel Walker Gait Distance 150 Other Goals up/down 2 steps L rail ascending SBA Days to Meet Goals 5 Frequency of Treatment Frequency Of Treatment Twice a Day Treatment Plan Physical Therapy Treatment Plan Bed Mobility Training,Transfer Training,Gait Training, Therapeutic Exercise,Balance Retraining,Post Op Education, Discharge Planning,Hot or Cold Pack,Neuromuscular Re-ed, Coordination Retraining,Manual Therapy Precautions Anterior Hip Precautions No Hip Extension,No Hip External Rotation Weight Bearing Status Weight Bearing Status Weight Bear as Tolerated Allowed Weight Bearing Amount (enter % RLE WBAT or #) (%) Recommendations To Nursing Amount of Assist Needed 1 Person Assist Discharge Recommendations PT Discharge Recommendations SNF Rehab Transportation Needs at Discharge Wheelchair/Cabulance
[2024-08-23 17:44] VITALS: BP 122/63; PULSE 109; RESP 16; TEMP 36.9; O2SAT 94
[2024-08-23 20:00] VITALS: BP 122/45; PULSE 100; RESP 18; TEMP 36.3; O2SAT 98
[2024-08-23] MEDS: LIOTHYRONINE 5 MCG TABLET PO (21:25)
[2024-08-24] MEDS: ACETAMINOPHEN 325 MG TABLET 975 MG PO (00:45)
[2024-08-24] MEDS: OXYCODONE IR 10 MG TABLET 20 MG PO ×5 (02:51→20:26)
[2024-08-24] MEDS: KETOROLAC 30 MG/ML VIAL 15 MG IV (04:02)
[2024-08-24] MEDS: LIOTHYRONINE 5 MCG TABLET 35 MCG PO (06:49)
[2024-08-24 08:00] VITALS: BP 137/54; PULSE 90; RESP 16; TEMP 36.4; O2SAT 98
[2024-08-24] MEDS: ASPIRIN EC 81 MG TABLET PO ×2 (09:56→20:27)
[2024-08-24] MEDS: DOCUSATE 100 MG CAPSULE PO ×2 (09:56→20:27)
[2024-08-24] MEDS: LIOTHYRONINE 5 MCG TABLET 15 MCG PO ×2 (09:57→15:51)
--- NOTE | 2024-08-24 10:14 | PT.IPTN ---
Current Diagnoses Unilateral primary osteoarthritis, right hip (08/22/24) Surgery Performed Operation Date: 08/22/24 07:45 Actual Procedures p Total Hip Arthroplasty/Anterior Approach(Right) - Andi Mejia MD Physical Therapy Treatment Note M2 PT-IP Current Condition Start: 08/22/24 16:12 Freq: NEEDED Status: Active Protocol: Document 08/22/24 13:45 AB (Rec: 08/22/24 16:23 AB [id number]) Physical Therapy Current Condition Current Condition Evaluation Date 08/22/24 Treatment Diagnosis s/p R KEHINDE anterior; difficulty in walking Onset Date 08/22/24 M3 PT-IP Subjective Start: 08/22/24 16:12 Freq: NEEDED Status: Active Protocol: Document 08/24/24 09:54 KS (Rec: 08/24/24 11:04 KS [id number]) Subjective Physical Therapy Visit Type Type Treatment Note Visit Start Time 09:54 Visit Stop Time 10:14 Number of TRAINING ENGINEER Visits 1 Physical Therapy Visit Comments Patient Comments Agreeable to work with PT. Therapy Pain Assessment Pain When Pain Assessed At Rest Pain Present Pain Present Pain Reported Location right hip Scale Used not quanitified Pain Management Techniques Apply Cold,Distraction, Modification of Treatment,Re- positioning M4 PT-IP Mobility and Gait Start: 08/22/24 16:12 Freq: NEEDED Status: Active Protocol: Document 08/24/24 09:54 KS (Rec: 08/24/24 11:04 KS [id number]) PT-Bed Mobility Assessment Supine to Sit Supine to Sit Minimal Assistance Sit to Supine Sit to Supine Moderate Assistance,1 Person Assistance PT-Transfer Assessment Sit to and From Stand Sit to and from Stand Minimal Assistance,1 Person Assistance,Use of Upper Extremities Equipment Transfer Assistive Device Gait Belt,Front Wheeled Walker Orthotic/Prosthetic Devices or Brace: No Transfers Transfer Destination Bed Transfer Technique ambulated Transfer Ability Level of Assist Minimal Assistance,1 Person Assistance,Use of Upper Extremities Comments Mobility Comments Pt in bed and agreeable to work w/ PT. Min Afor sup<>sit and sit<>Stand using FWW. Pt needs cues to put weight through RLE. She was able to ambulate ~40 ft in room w/ FWW , but then requested to get back to bed due to pain and fatigue. Has been completing exercises throughout the day. Left in bed w/ all needs in reach. Gait Assessment Gait Gait Assistance Required: Minimum Assistance,1 Person Assist Distance (Feet) 40 Able to Maintain Weight Bearing Status Yes During Gait Assistive Devices Assistive Device Gait Belt,Front Wheeled Walker Orthotic/Prosthetic Devices or Brace: No Gait Deviations General Gait Pattern Decreased Stride Length, Decreased Feet Clearance,Step- to Gait Factors Limiting Gait Function Factors Limiting Gait Function Decreased Activity Tolerance, Decreased Strength,Difficulty Following Directions,Limited Range of Motion,Pain,Poor Balance,Poor Safety Awareness Comments Gait Comments Less tolerance for ambulation today due to pain. PT-Balance Assessment Sitting Balance and Reactions Static Sitting Balance Ability Normal Dynamic Sitting Balance Ability Good Standing Balance and Reactions Static Standing Balance Ability Fair Dynamic Standing Balance Ability Fair Device Used FWW M5 PT-IP Objective Assessments Start: 08/22/24 16:12 Freq: NEEDED Status: Active Protocol: Document 08/22/24 13:45 AB (Rec: 08/22/24 16:23 AB [id number]) Orientation Orientation/Cognition Level of Alertness Alert Orientation Name,Place,Situation Language Function Ability No Deficits Noted Safety Awareness Decreased Safety Awareness Memory Description No Deficits Noted Comments slightly sleepy Gross Range of Motion Lower Extremity ROM Assessment Within Functional Limits Strength Lower Extremity Strength Assessment Right Impaired Hip 3+/5 Knee 3+/5 Coordination Assessment Gross Coordination Gross Coordination WNL Sensation Assessment Sensation Gross Sensation WNL Muscle Tone Muscle Tone WNL Yes M6 PT-IP Treatment Start: 08/22/24 16:12 Freq: NEEDED Status: Active Protocol: Document 08/24/24 09:54 KS (Rec: 08/24/24 11:04 KS [id number]) Physical Therapy Treatment Education Education Provided Precautions,Weight Bearing Status,Safety M7 PT-IP Assessment and Plan Start: 08/22/24 16:12 Freq: NEEDED Status: Active Protocol: Document 08/24/24 09:54 KS (Rec: 08/24/24 11:04 KS [id number]) PT Summary Assessment and Plan Potential Rehabilitation Potential Good Summary Impairments Pain,ROM,Strength,Balance, Coordination,Sensation,Tone, Cognition,Bed Mobility, Transfers,Gait,Activity Tolerance Progress Towards Goals Slow Progress due to Pain,Slow Progress due to Medical Issues,Slow Progress due to Activity Tolerance Assessment Summary Pt requiring less assistance overall today but does report she doesnt feel as good as yesterday and has less energy. Still having a lot of pain and pain meds not lasting 4 hours. Pt will benefit from SNF to improve functional mobility. Goals Bed Mobility Goal Independent Transfer Goal Independent,Front Wheeled Walker Gait Goal Independent,Front Wheel Walker Gait Distance 150 Other Goals up/down 2 steps L rail ascending SBA Days to Meet Goals 5 Frequency of Treatment Frequency Of Treatment Twice a Day Treatment Plan Physical Therapy Treatment Plan Bed Mobility Training,Transfer Training,Gait Training, Therapeutic Exercise,Balance Retraining,Post Op Education, Discharge Planning,Hot or Cold Pack,Neuromuscular Re-ed, Coordination Retraining,Manual Therapy Precautions Anterior Hip Precautions No Hip Extension,No Hip External Rotation Weight Bearing Status Weight Bearing Status Weight Bear as Tolerated Allowed Weight Bearing Amount (enter % RLE WBAT or #) (%) Recommendations To Nursing Amount of Assist Needed 1 Person Assist Discharge Recommendations PT Discharge Recommendations SNF Rehab Transportation Needs at Discharge Wheelchair/Cabulance
[2024-08-24] MEDS: HYDROMORPHONE 2 MG TABLET 4 MG PO ×2 (13:29→22:43)
[2024-08-24 19:45] VITALS: BP 147/69; PULSE 102; RESP 16; TEMP 36.3; O2SAT 97
[2024-08-24] MEDS: LIOTHYRONINE 5 MCG TABLET PO (20:27)
[2024-08-25] MEDS: OXYCODONE IR 10 MG TABLET 20 MG PO ×3 (00:24→08:04)
--- NOTE | 2024-08-25 06:28 | PM.DS.1 ---
History of Present Illness History of Present Illness Date Patient Seen: 08/25/24 Time Patient Seen: 07:00 Chief complaint: Right KEHINDE Anterior Approach Narrative: Operative Date/Time/Diagnoses Date of procedure: 08/22/24 Pre-op diagnosis: Right hip osteoarthritis Post-op diagnosis: same Procedure & Clinicians Procedure: Right total hip arthroplasty Same procedure as scheduled: Yes Surgeon: Andi Mejia [employer] Specialist: David Tilley Anesthesia Type: General and Local Operative Notes Estimated Blood Loss (mL): 250 Procedure in detail: Right Uncemented Direct Anterior Depuy Total Hip Arthroplasty: Implants: [place] Gription size 54 cup? Actis femoral stem size 5 high offset? 36 mm +1.5 ceramic femoral head? Discharge Providers Provider Discharge Date: 08/25/24 Primary care physician: TALI Culp Consults: 08/13/24 10:37 Consult to Anesthesiology Routine Comment: Consulting Provider: Anesthesiologist Reason for consultation: Surgeon request - pain management. 08/22/24 06:00 Consult to Anesthesiology Routine Comment: Consulting Provider: Anesthesiologist Reason for consultation: Regional block for post operative pain control 08/22/24 12:08 Consult to Discharge Planning Routine Comment: Consult to Occupational Therapy Evaluate & Treat Comment: Physician Instructions: Evaluate and treat Consult to Physical Therapy Evaluate & Treat Comment: Physician Instructions: post op KEHINDE protocol 08/22/24 15:40 Consult to CREDIT UNION FIELD EXAMINER - Equine Breeder Routine Comment: Thinks she may need SNF for a short time. Equine Breeder Consult needed for:: Other reason (Comment) Discharge provider: Jessica Juárez PA-C Summary Hospital Course Discharge Diagnosis: Right hip osteoarthritis, s/p right total hip arthroplasty Hospital Course: Ms Murdock's postoperative course was significant for difficulty with pain control and slow progress w/ PT. Her postoperative care plans fell through, necessitating transfer to a SNF for further rehab prior to going home. Per pt, would prefer [facility]; CM notes indicate [facility]. On the morning of POD# 3, she was feeling well. She was eating and voiding without difficulty. Prior to surgery, she was prescribed chronic oxycodone by a provider at [facility] and was taking oxycodone 20mg TID. During this admission, she has been receiving oxycodone 20mg q 4H as well as hydromorphone 4mg for BTP. We discussed discontinuing hydromorphone, continuing oxycodone 20mg TID and supplementing w/ oxycodone 10mg PRN for BTP. Pt was in agreement with this plan. She will continue to receive her oxycodone 20mg TID from her pain management provider and we will give a one-time rx of oxycodone 10mg q 6H as needed #30 from our practice, after which time Db Krishnamurthy will fully assume opioid prescribing. Exam Vital Signs (past 8 hours): Fraction of Inspired Oxygen 28 SaO2/FiO2 Ratio 350 Oxygen Delivery Method Room Air Oxygen Flow Rate 0 Narrative Exam Narrative: 5/5 strength in hip flexors, quadriceps, hamstrings, DF, PF, EHL on right. Sensation to light touch intact throughout RLE, calf soft and compressible. Aquacel dressing CDI. Objective Labs 08/23/24 04:15 08/23/24 13:15 PFSH Medical History (Updated 08/25/24 @ 07:10 by Jessica Juárez PA-C) Chronic, continuous use of opioids Chronic back pain Foot fracture, right Double vision Hypothyroid Osteoarthritis Surgical History (Updated 08/25/24 @ 07:11 by Jessica Juárez PA-C) History of lateral meniscus repair of left knee History of cholecystectomy (2012) Cataract extraction status History of tonsillectomy Social History household members: none Smoking Status: Former smoker alcohol intake: current Discharge Assessment & Plan Assessment and Plan Assessment: Right hip osteoarthritis, s/p right total hip arthroplasty Plan of Treatment: Discharge to SNF, [facility] vs [facility] per CM. Multimodal pain control w/ opioid prescribing as above. ASA 81mg BID for VTE prophylaxis. WBAT to right hip, anterior hip precautions. F/u in office as scheduled. Discharge Plan Discharge Plan Patient Disposition: SNF Transfer to: [facility] Transportation: Facility vehicle I certify the postop hospital fpc care is medically necessary on a continuing basis for any conditions for which he/ she received care during this hospitalization.: Yes The receiving facility has agreed to accept transfer and provide medical treatment.: Yes Discharge orders & Medications Discharge Orders: Discharge (Order); Ordered 08/25/24 Ordered By: Jessica Juárez Prescriptions: New aspirin 81 mg Tablet,Delayed Release (Dr/Ec) 81 mg PO BID Qty: 60 0RF ondansetron 4 mg Tablet,Disintegrating 4 mg PO Q6HR PRN (Reason: nausea and vomiting) Qty: 30 0RF polyethylene glycol 3350 17 gram Powder In Packet 17 g PO DAILY PRN (Reason: Constipation) Qty: 100 1RF oxycodone 10 mg tablet 10 mg PO Q6H PRN (Reason: pain (scale score 7-10)) Qty: 30 0RF oxycodone 20 mg tablet 20 mg PO Q8H Qty: 30 0RF Continued liothyronine 5 mcg tablet See Rx Instructions .ROUTE .COMPLEX Rx Instructions: 35mcg upon waking, 15mcg mid morning, 15mcg 1430, 5mcg bedtime. acetaminophen [Tylenol Extra Strength] 500 mg Tablet 1,000 mg PO PRN PRN (Reason: Pain (Scale Score 4-6)) testosterone 10 mg/0.5 gram /actuation Gel In Metered-Dose Pump 1 - 2 pump TRANSDERMAL Q OTHER DAY Patient Comments: none on . Rx Instructions: apply evenly over front and inner area of one thigh; avoid water for >=2 hrs magnesium citrate 125 mg Capsule 375 mg PO DAILY PRN (Reason: leg cramps) Changed oxycodone 20 mg tablet 20 mg PO Q8H Qty: 30 0RF Follow up/Referrals: Andi Mejia MD [Physician] - 09/03/24 11:10 am (Follow up w/ David Tilley PA-C, at [facility] office in [place].) Gaviota Lyons ARNP [Primary Care Provider] - Diet/Activity/Treatments Diet: Diet as Tolerated Activity: Weightbearing as tolerated. Anterior hip precautions. Cold/Heat Therapy: Ice to hip as needed for pain. Skin/Wound/Dressing Care Report to your healthcare provider any signs of infection, such as:: chills, fever, night sweats, unusual drainage and unusual redness Dressing: May shower. Keep dressing in place until follow up in office. No bathing or otherwise soaking incision. Call the office if the dressing becomes saturated inside. [facility] Reason for rehabilitation: Post-operative therapy Rehab type: Physical therapy and Occupational therapy Visit Report/Discharge Packet Instructions: DI for Hip Replacement Stand Alone Forms: Surgery Discharge Discharge Data Primary Care Provider: Gaviota Lyons Attending Provider: Andi Mejia Quality VTE Deep Vein Thrombosis/Pulmonary Embolism Present on Admission: No
[2024-08-25] MEDS: LIOTHYRONINE 5 MCG TABLET 35 MCG PO (07:25)
[2024-08-25] MEDS: ASPIRIN EC 81 MG TABLET PO (08:04)
[2024-08-25] MEDS: DOCUSATE 100 MG CAPSULE PO (08:04)
--- NOTE | 2024-08-25 08:21 | CM.DPC ---
Addendum entered by MARISELA Dunn 08/25/24 09:17: ADD: [facility] obtained [employer] insurance auth for SNF and transport scheduled with w/c van for 1100 today. BRIAN updated RN, transplant nurse practitioner, and EDUCATIONAL ADMINISTRATOR. BF Original Note: DCP Discharge SNF Per Ortho PA, pt medically stable to d/c to SNF today and no identified barriers to discharge and completed orders and packet. SW called [facility] admissions and they confirm they are still awaiting auth from [employer] but already been on the phone with them this morning. [facility] will work on setting up tentative transport time for today. SW faxed discharge summary, orders, signed med list, script, copy of insurance card, MAR, PASRR to review. SW met bedside with pt and explained role and updated her on above and she confirms she remains agreeable to d/c to [facility] and does not feel she can safely d/c home today and aware still waiting for SNF auth from her insurance. Updated RN, transplant nurse practitioner, and EDUCATIONAL ADMINISTRATOR. Plan: SW to follow for confirmation that [employer] will auth SNF and transport time for [facility] today. MARISELA Dunn
[2024-08-25] MEDS: LIOTHYRONINE 5 MCG TABLET 15 MCG PO (10:20)
--- NOTE | 2024-08-25 11:54 | PC.NURSE ---
Discharge Note Patient A&O, VSS, RA, no complaints of pain/discomfort. Discharge packet reviewed with patient, all questions/concerns addressed. PIV discontinued. Patient able to dress self and pack all belongings with assistance. Packet given to facility staff. Patient taken via wheelchair by facility staff.
== END 2024-08-25 11:30 ==
LOC: OR 06:02 → AC 11:53
PROVIDERS: PCP Nurse Practitioner Family; Referring Provider Orthopaedic Surgery Adult Reconstructive Orthopaedic Surgery; Visit Provider Orthopaedic Surgery Adult Reconstructive Orthopaedic Surgery
PROC: (CPT 27130; principal; 2024-08-22 07:45)
DX: M16.11 Unilateral primary osteoarthritis, right hip (principal); G89.4 Chronic pain syndrome; M25.751 Osteophyte, right hip
CPT/HCPCS: 27130; 36415; 73502; 76000; 82565; 85014; 85018; 94762; 97116; 97162; 97165; 97530; 97535; C1776; J0330; J0690; J1171; J1885; J2250; J2405; J2704; J3010; J3410

== ENCOUNTER → 2025-05-13 13:04 | Outpatient (CLI) | payer MEDICARE, SELFPAY ==
[2024-08-22 12:17] VITALS: BMI 27.3
--- NOTE | 2025-05-13 13:07 | DI.CT.S_ITS ---
PROCEDURE: CT HIP RIGHT WITHOUT CON INDICATIONS: Eval R Hip Non-Union - increased pain TECHNIQUE: Noncontrast 3 mm axial sections acquired through the bony pelvis. Additional 3 mm axial sections acquired through the symptomatic hip joint, with coronal and sagittal reformats. CT dated COMPARISON: [facility], CR, XR HIP W PEL IF DONE RT 2V, 08/22/2024, 10:02. [facility], CR, XR PELVIS WITH LATERAL HIP RIGHT, 11/14/2024, 14:48. [facility], CR, XR PELVIS WITH LATERAL HIP RIGHT, 01/09/2025, 10:56. [facility], CR, ORTHO-XR HIP RT 2V, 03/20/2025, 13:13. FINDINGS: Image quality: Excellent. Bones: Postsurgical changes from a right total hip arthroplasty. 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 Degenerative changes are seen at the pubic symphysis, left hip, and included spine. No suspicious osseous lesion. Soft tissues: Moderate right hip effusion. The musculature surrounding the pelvis is normal in bulk. No acute abnormalities seen in the included pelvis. Small bilateral fat containing inguinal hernias. IMPRESSION: Postsurgical changes from right total hip arthroplasty. Ununited greater trochanter osseous fragments with corticated margin are seen adjacent to the arthroplasty. No acute fracture. Moderate hip effusion. Approved by: Manas Hood M.D. on 05/13/2025 at 19:43
== END ==
LOC: CT 13:06
PROVIDERS: PCP Nurse Practitioner Family; Referring Provider Orthopaedic Surgery Adult Reconstructive Orthopaedic Surgery; Visit Provider Orthopaedic Surgery Adult Reconstructive Orthopaedic Surgery
DX: M25.551 Pain in right hip (principal); M25.451 Effusion, right hip; K40.20 Bilateral inguinal hernia, without obstruction or gangrene, not specified as recurrent; Z96.641 Presence of right artificial hip joint
CPT/HCPCS: 73700

== ENCOUNTER 2025-07-22 10:50 | Outpatient (CLI) | payer MEDICARE, SELFPAY ==
[2024-08-22 12:17] VITALS: BMI 27.3
[2025-07-22 11:38] VITALS: BP 149/79; PULSE 96; RESP 17; O2SAT 97
[2025-07-22 11:52] VITALS: BP 148/81; PULSE 90; RESP 18; O2SAT 97
[2025-07-22 11:53] VITALS: BP 139/86; PULSE 104; RESP 18; O2SAT 96
[2025-07-22] MEDS: LIDOCAINE 1% (PF) 5 ML INJ (11:55)
[2025-07-22 11:58] VITALS: BP 161/93; PULSE 91; RESP 22; O2SAT 96
--- NOTE | 2025-07-22 12:47 | P.PCN_ITS ---
Date/Time/Diagnoses Date of procedure: 06/03/25 Time of procedure: 11:30 Pre-procedure diagnosis: Lumbar radiculopathy Post-procedure diagnosis: same Procedure Notes Procedure: Interlaminar epidural steroid injection L4-5 Indications: Lumbar radiculopathy/pain Physician: Omi Cristina Total sedation minutes: 0 Complications: none Procedure in detail & Post-procedure care: Patient is here for the planned procedure today as noted. No significant change since the last office visit. For additional clinical scenario please see those office notes. Focused exam: Vital signs reviewed as charted on intake. Gen: Well developed. No acute distress. CV: RRR, no M/R/G Chest: Non-labored breathing, CTAB. Psych: Alert and well-oriented. Mood/Affect: normal. Patient suitable for the planned procedure today: Yes === The following procedure was performed in the office today: Lumbar Epidural Steroid Injection with fluoroscopic guidance - Interlaminar approach ([id number]) Levels Treated: L4-5 Approach: interlaminar Soft tissue: [1% lidocaine 2 mL] Test dose: [1% lidocaine 1 mL] Injectate: 0.75 mL of Depo-Medrol (80mg/mL) in 1.25 mL 1% lidocaine and 1 mL normal saline Fluoroscopy Agent: Isovue 300-M 1.5 mL Notes: Right paramedian approach. 3.5 in 20 gauge Touhy needle utilized and adequate. Preprocedure pain 9/10, postprocedure pain 8/10. Procedure: After discussing the risks, benefits, and alternatives to the procedure, the patient expressed understanding and wished to proceed. The risks include but are not limited to infection, allergic reaction, nerve damage, stroke, paralysis, epidural hematoma, syncope, headache, respiratory or cardiac arrest, spinal cord injury, and scar formation. Informed consent was obtained and all patient questions were answered. The patient was brought to the procedure suite and placed in the prone position. A pre-procedural pause was conducted to verify: correct patient identity, procedure to be performed and as applicable, correct side and site, correct patient position, and any special requirements. Using a paramedian approach from the side noted above, the region overlying the target was localized under fluoroscopic visualization and the soft tissues overlying this structure were infiltrated with the anesthetic listed above. With fluoroscopic guidance, a #20 gauge Tuohy needle (unless otherwise noted) was inserted into the epidural space using a paramedian approach. The epidural space was localized utilizing intermittent multiplanar fluoroscopic guidance and loss of resistance technique. After negative aspiration, the contrast noted above was injected into the epidural space and the flow of contrast was observed, confirming epidural spread without evidence of intravascular or intrathecal spread. Multi-planar radiographs were obtained for documentation p urposes. A test dose of lidocaine was injected into the above noted epidural space, and the patient was observed for 30-60 seconds. No sensory deficits were reported and normal lower extremity motor function was noted. Subsequently, the injectate as noted above was administered into the level noted above. The patient tolerated the procedure well and was discharged after an appropriate period of observation. If there are any complications, the patient was instructed to call us. The patient is to follow-up with the requesting provider in 2-3 weeks. This note was compiled using voice recognition software and therefore may contain typos. Please contact the author with any questions or concerns.
== END 2025-07-22 12:05 | disposition home or self-care (01) ==
LOC: RAD 10:50
PROVIDERS: PCP Nurse Practitioner Family; Referring Provider Nurse Practitioner Family; Visit Provider Physical Medicine & Rehabilitation
DX: M54.16 Radiculopathy, lumbar region (principal)
CPT/HCPCS: 62323; J1010